=== PATIENT | female | born 1965 | race African-American/Black ===

== ENCOUNTER 2021-03-06 01:31 | Emergency (ER) | payer BC ==
[~2021-03-06] VITALS: Ht 154.9 cm; Wt 89.0 kg
[2021-03-06] MEDS ORDERED: MORPHINE SULFATE 4 MG/ML CPJ (NOT FOR IM USE) IV STA (02:16)
[2021-03-06] MEDS ORDERED: ONDANSETRON HCL 4MG/2ML INJ IV STA (02:16)
[2021-03-06 02:56] LABS: BASOPHILS % 0.8 % (0.0-2.0); EOSINOPHILS % 0.1 % (0.0-5.0); HEMATOCRIT. 42.3 % (36.0-48.0); HEMOGLOBIN. 14.3 g/dL (12.0-16.0); LYMPHOCYTES % 20.3 % (20.0-50.0); MEAN CORPUSCULAR HEMOGLOBIN 29.7 pg (28.0-32.0); MEAN CORPUSCULAR VOLUME 87.9 fL (81.0-99.0); MEAN PLATELET VOLUME 8.3 fl (7.4-10.4); MONOCYTES % 8.2 % (2.0-8.0); NEUTROPHILS % 70.6 % (40.0-76.0); PLATELET 283 x1000/uL (130-400); RED BLOOD CELL COUNT 4.82 mill/uL (4.2-5.4)
[2021-03-06 02:59] LABS: CHLORIDE 108 mEq/L (98-107)
[2021-03-06] MEDS ORDERED: BACL-141 MT (05:36)
[2021-03-06] MEDS ORDERED: IBUP-2028 MT (05:36)
[2021-03-06 06:17] VITALS: BP 148/84
== END 2021-03-06 06:18 | disposition home or self-care (01) ==
LOC: ER 01:31
DX: G44.209 Tension-type headache, unspecified, not intractable (principal); Z98.890 Other specified postprocedural states
CPT/HCPCS: 36415; 70450; 72125; 80053; 85025; 99285; J2270; J2405; Z7610